=== PATIENT | female | born 1945 | race African-American/Black ===

== ENCOUNTER 2016-07-09 23:50 | Emergency (ER) | payer MEDICARE, OTHER ==
[~2016-07-09] VITALS: Ht 154.9 cm; Wt 63.2 kg
[~2016-07-09 23:50] MED LIST: CEPH500 PO
[2016-07-10] MEDS ORDERED: ACETAMINOPHEN 500 MG TABLET PO ONE (00:30)
[2016-07-10 01:30] VITALS: BP 154/92
[2016-07-10] MEDS ORDERED: CYCLOBENZAPRINE HCL 10 MG TABLET PO ONE (01:45)
== END 2016-07-10 01:59 | disposition home or self-care (01) ==
LOC: EMS 23:51
DX: S29.012A Strain of muscle and tendon of back wall of thorax, initial encounter (principal); R07.81 Pleurodynia; F17.210 Nicotine dependence, cigarettes, uncomplicated; Z88.5 Allergy status to narcotic agent; X58.XXXA Exposure to other specified factors, initial encounter; Y93.89 Activity, other specified; Y92.89 Other specified places as the place of occurrence of the external cause; Y99.8 Other external cause status
CPT/HCPCS: 71020; 93005; 99285

== ENCOUNTER 2017-06-22 04:21 | Emergency (ER) | payer MEDICARE, OTHER ==
[~2017-06-22] VITALS: Ht 154.9 cm; Wt 65.9 kg
[2017-06-22] MEDS ORDERED: BACL10TA PO (04:31)
[2017-06-22] MEDS ORDERED: IBUP-2071 PO (04:32)
[2017-06-22] MEDS ORDERED: HYDROCODONE/ACETAMINOPHEN 5-325 MG TABLET PO ONE (07:00)
[2017-06-22 07:55] VITALS: BP 119/75
== END 2017-06-22 08:07 | disposition home or self-care (01) ==
LOC: EMS 04:22
DX: M54.5 Low back pain (principal); M54.6 Pain in thoracic spine; G89.29 Other chronic pain; Z88.5 Allergy status to narcotic agent
CPT/HCPCS: 99283

== ENCOUNTER 2017-08-14 03:50 | Emergency (ER) | payer MEDICARE, OTHER ==
[~2017-08-14] VITALS: Ht 162.6 cm; Wt 63.6 kg
[~2017-08-14 03:50] MED LIST changes: +BACL10TA PO; -CEPH500 PO; +IBUP-2071 PO
[2017-08-14] MEDS ORDERED: CYCLOBENZAPRINE HCL 10 MG TABLET PO ONE (04:45)
[2017-08-14 05:15] LABS: APPEARANCE,URINE CLEAR (CLEAR); BILIRUBIN,URINE NEGATIVE (NEGATIVE); GLUCOSE, URINE (UA) NEGATIVE (NEGATIVE); KETONES,URINE NEGATIVE (NEGATIVE); LEUKOCYTE ESTERASE ,URINE NEGATIVE (NEGATIVE); NITRATE,URINE NEGATIVE (NEGATIVE); OCCULT BLOOD,URINE NEGATIVE (NEGATIVE); PROTEIN,URINE NEGATIVE (NEGATIVE); UROBILINOGEN,URINE 0.2 mg/dL (<=1.0)
[2017-08-14] MEDS ORDERED: LIDOCAINE HCL 5% TRANSDERMAL PATCH TD ONE (05:30)
[2017-08-14 06:00] VITALS: BP 132/80
== END 2017-08-14 06:02 | disposition home or self-care (01) ==
LOC: EMS 03:51
DX: G89.29 Other chronic pain (principal); M54.5 Low back pain; M85.80 Other specified disorders of bone density and structure, unspecified site; F17.210 Nicotine dependence, cigarettes, uncomplicated; Z90.710 Acquired absence of both cervix and uterus; Z88.6 Allergy status to analgesic agent; Z79.899 Other long term (current) drug therapy
CPT/HCPCS: 72100; 99285

== ENCOUNTER 2017-08-31 05:33 | Emergency (ER) | payer MEDICARE, OTHER ==
[~2017-08-31] VITALS: Ht 162.6 cm; Wt 63.0 kg
[2017-08-31] MEDS: LIDOCAINE HCL 2%/EPI 1:200,000/PF 20 ML VIAL INJ ONE (07:09)
[2017-08-31] MEDS: CEPHALEXIN MONOHYDRATE 500 MG CAPSULE PO ONE (07:50)
[2017-08-31] MEDS: MUPIROCIN CALCIUM 2% 22 GM OINTMENT TP ONE (07:50)
[2017-08-31 08:04] VITALS: BP 134/71
== END 2017-08-31 08:09 | disposition home or self-care (01) ==
LOC: EMS 05:37
DX: L03.116 Cellulitis of left lower limb (principal); L02.416 Cutaneous abscess of left lower limb; F17.210 Nicotine dependence, cigarettes, uncomplicated; Z88.5 Allergy status to narcotic agent
CPT/HCPCS: 10060; 99283

== ENCOUNTER 2018-02-19 03:01 | Emergency (ER) | payer MEDICARE, OTHER ==
[~2018-02-19] VITALS: Ht 154.9 cm; Wt 61.3 kg
[2018-02-19] MEDS ORDERED: LIDOCAINE/PF 1% 2 ML VIAL IM ONE (04:15)
[2018-02-19] MEDS ORDERED: DOXYCYCLINE HYCLATE 100 MG CAPSULE PO ONE (04:15)
[2018-02-19] MEDS ORDERED: CefTRIAXone SODIUM 1 GM/VIAL IM ONE (04:15)
[2018-02-19 04:25] VITALS: BP 117/68
== END 2018-02-19 04:45 | disposition home or self-care (01) ==
LOC: EMS 03:02
DX: L03.116 Cellulitis of left lower limb (principal); F17.210 Nicotine dependence, cigarettes, uncomplicated; Z90.49 Acquired absence of other specified parts of digestive tract; Z90.710 Acquired absence of both cervix and uterus; Z79.899 Other long term (current) drug therapy
CPT/HCPCS: 96372; 99283; 99406; J0696; J3490

== ENCOUNTER 2018-10-05 23:18 | Emergency (ER) | payer MEDICARE, OTHER ==
[~2018-10-05] VITALS: Ht 154.9 cm; Wt 65.9 kg
[~2018-10-05 23:18] MED LIST changes: -BACL10TA PO
[2018-10-06] MEDS ORDERED: CefTRIAXone SODIUM 1 GM/VIAL IM ONE (01:00)
[2018-10-06] MEDS ORDERED: LIDOCAINE/PF 1% 2 ML VIAL IM ONE (01:00)
[2018-10-06 01:24] LABS: BASOPHILS % (AUTO) 0.9 % (0.0-2.0); EOSINOPHILS % (AUTO) 0.8 % (1.0-6.0); HEMATOCRIT 41.7 % (36-46); HEMOGLOBIN 13.4 g/dL (12.0-16.0); LYMPHOCYTES # (AUTO) 2.3 K/uL (1.0-4.8); LYMPHOCYTES % (AUTO) 29.8 % (22.0-44.0); MEAN CORPUSCULAR HEMOGLOBIN 31.2 pg (26.0-34.0); MEAN CORPUSCULAR HGB CONC 32.1 G/dL (31.0-37.0); MEAN CORPUSCULAR VOLUME 97 fL (80-100); MONOCYTES # (AUTO) 0.8 K/uL (0.1-1.0); MONOCYTES % (AUTO) 10.1 % (2.0-9.0); NEUTROPHILS # (AUTO) 4.6 K/uL (1.8-7.7); NEUTROPHILS % (AUTO) 58.4 % (40.0-70.0); PLATELET COUNT (AUTO) 395 K/uL (150-450); RED BLOOD CELL COUNT(AUTO) 4.29 MIL/uL (4.00-5.20); RED CELL DISTRIBUTION WIDTH 15.9 % (11.5-14.5)
[2018-10-06 01:58] VITALS: BP 128/78
== END 2018-10-06 02:03 | disposition home or self-care (01) ==
LOC: EMS 23:19
DX: L03.116 Cellulitis of left lower limb (principal); G89.29 Other chronic pain; M54.9 Dorsalgia, unspecified; F17.210 Nicotine dependence, cigarettes, uncomplicated; Z90.710 Acquired absence of both cervix and uterus
CPT/HCPCS: 36415; 85025; 96372; 99283; J0696; J3490

== ENCOUNTER 2021-04-25 01:37 | Emergency (ER) | payer MEDICARE, OTHER ==
[~2021-04-25] VITALS: Ht 154.9 cm; Wt 72.7 kg
[2021-04-25] MEDS ORDERED: ACETAMINOPHEN 325 MG TABLET PO ONE (02:00)
[2021-04-25] MEDS ORDERED: IBUPROFEN 600 MG TABLET PO ONE (02:00)
[2021-04-25] MEDS ORDERED: LIDOCAINE 5% TRANSDERMAL PATCH TD ONE (02:30)
[2021-04-25 02:43] LABS: BASOPHILS % (AUTO) 1.5 % (0.0-2.0); EOSINOPHILS % (AUTO) 0.8 % (1.0-6.0); HEMATOCRIT 46.9 % (36-46); HEMOGLOBIN 15.3 g/dL (12.0-16.0); LYMPHOCYTES # (AUTO) 2.5 K/uL (1.0-4.8); LYMPHOCYTES % (AUTO) 34.5 % (22.0-44.0); MEAN CORPUSCULAR HEMOGLOBIN 31.8 pg (26.0-34.0); MEAN CORPUSCULAR HGB CONC 32.7 G/dL (31.0-37.0); MEAN CORPUSCULAR VOLUME 97 fL (80-100); MONOCYTES # (AUTO) 0.9 K/uL (0.1-1.0); MONOCYTES % (AUTO) 12.3 % (2.0-9.0); NEUTROPHILS # (AUTO) 3.6 K/uL (1.8-7.7); NEUTROPHILS % (AUTO) 50.9 % (40.0-70.0); PLATELET COUNT (AUTO) 397 K/uL (150-450); RED BLOOD CELL COUNT(AUTO) 4.82 MIL/uL (4.00-5.20); RED CELL DISTRIBUTION WIDTH 15.1 % (11.5-14.5)
[2021-04-25 03:04] LABS: ANION GAP 13 mmol/L (8-16); CALCIUM, TOTAL 8.9 mg/dL (8.8-10.5); CARBON DIOXIDE 28 mmol/L (22-29); CHLORIDE 101 mmol/L (98-107); CREATININE 0.59 mg/dL (0.60-1.30); GLUCOSE,RANDOM 90 mg/dL (70-110); POTASSIUM 3.6 mmol/L (3.5-5.1); UREA NITROGEN, BLOOD 10 mg/dL (7-18)
[2021-04-25 03:27] LABS: ALANINE AMINOTRANSFERASE 19 U/L (12-78); ALBUMIN 3.9 g/dL (3.4-5.0); ALKALINE PHOSPHATASE 138 U/L (46-116); ASPARTATE AMINOTRANSFERASE 24 U/L (15-37); BILIRUBIN,TOTAL 0.3 mg/dL (0.1-1.0); CREATINE KINASE, TOTAL ONLY 99 U/L (26-192); TOTAL PROTEIN, SERUM 8.5 g/dL (6.4-8.2)
[2021-04-25 04:10] VITALS: BP 155/64
[2021-04-25] MEDS ORDERED: AMOX TR/POT CLAV 875 MG/125 MG TABLET PO ONE (04:15)
[2021-04-25] MEDS ORDERED: AMOX1TAB16 PO (04:17)
[2021-04-25 05:17] LABS: GLOMERULAR FILTR. RATE CALC > 60 mL/min (>60); SODIUM SERUM 142 mmol/L (136-145)
[2021-04-25 05:27] LABS: B-TYPE NATRIURETIC PEPTIDE 11 pg/mL (0-100)
== END 2021-04-25 04:34 | disposition home or self-care (01) ==
LOC: EMS 01:41
DX: J32.9 Chronic sinusitis, unspecified (principal); R07.81 Pleurodynia; I10 Essential (primary) hypertension; G89.29 Other chronic pain; F17.210 Nicotine dependence, cigarettes, uncomplicated; Z90.710 Acquired absence of both cervix and uterus
CPT/HCPCS: 70450; 71045; 80053; 82550; 83880; 84484; 85025; 93005; 99285; 36415-L1; 36415-TC